=== PATIENT | male | born 1990 | race Caucasian/White ===

== ENCOUNTER 2019-02-04 17:46 | Inpatient (IN) | payer SELFPAY ==
[~2019-02-04] VITALS: Ht 157.5 cm; Wt 85.0 kg
--- NOTE | 2019-02-04 18:29 | ERD ---
ER Documentation Chief Complaint Chief Complaint LLQ PAIN WITH DISTENDED ABDOMEN SINCE LAST NIGHT HPI The patient is a 28-year-old male, presenting to the ER because of left lower quadrant abdominal pain for 1 day with dysuria and fever. He denies neck pain, chest pain, dysuria, diarrhea, constipation. He denies similar symptoms previously. He smokes and drinks, denies illicit drug, therer is no aggravating or relieving factor Medical/surgical history: None ROS All systems reviewed and are negative except as per history of present illness. Allergies Allergies: Coded Allergies: No Known Allergy (Unverified , 02/04/19) Physical Exam Vitals Vital Signs Date Temp Pulse Resp B/P (MAP) Pulse Ox O2 O2 Flow FiO2 Time Delivery Rate 02/04/19 92 18 122/73 99 Room Air 19:47 (89) 02/04/19 100.0 91 18 112/69 98 18:17 (83) Physical Exam Const: No acute distress. Head: Atraumatic. Eyes: Normal Conjunctiva. ENT: Normal External Ears, Nose and Mouth. Neck: Full range of motion. No meningismus. Resp: Clear to auscultation bilaterally. Cardio: Regular rate and rhythm. Abd: Soft, non distended, normal bowel sounds, diffuse and moderate abdominal tenderness, more tenderness at the left lower quadrant. Skin: No petechiae or rashes. Back: No midline or flank tenderness. Ext: No cyanosis, or edema. Neur: Awake and alert. No focal deficit Psych: Normal Mood and Affect. Result Diagram: 02/04/19 1834 02/04/19 1834 Results 24 hrs Laboratory Tests Test 02/04/19 18:34 02/04/19 18:35 White Blood Count 15.6 10^3/ul Red Blood Count 4.79 10^6/ul Hemoglobin 15.6 g/dl Hematocrit 46.2 % Mean Corpuscular Volume 96.5 fl Mean Corpuscular Hemoglobin 32.6 pg Mean Corpuscular Hemoglobin Concent 33.8 g/dl Red Cell Distribution Width 12.9 % Platelet Count 360 10^3/UL Mean Platelet Volume 9.5 fl Immature Granulocytes % 0.400 % Neutrophils % 81.5 % Lymphocytes % 10.0 % Monocytes % 7.8 % Eosinophils % 0.0 % Basophils % 0.3 % Nucleated Red Blood Cells % 0.0 /100WBC Immature Granulocytes # 0.060 10^3/ul Neutrophils # 12.7 10^3/ul Lymphocytes # 1.6 10^3/ul Monocytes # 1.2 10^3/ul Eosinophils # 0.0 10^3/ul Basophils # 0.0 10^3/ul Nucleated Red Blood Cells # 0.0 10^3/ul Sodium Level 140 mmol/L Potassium Level 3.7 mmol/L Chloride Level 102 mmol/L Carbon Dioxide Level 28 mmol/L Anion Gap 10 Blood Urea Nitrogen 13 mg/dl Creatinine 1.05 mg/dl Est Glomerular Filtrat Rate mL/min > 60 mL/min Glucose Level 93 mg/dl Calcium Level 9.9 mg/dl Total Bilirubin 1.2 mg/dl Direct Bilirubin 0.00 mg/dl Indirect Bilirubin 1.2 mg/dl Aspartate Amino Transf (AST/SGOT) 29 IU/L Alanine Aminotransferase (ALT/SGPT) 51 IU/L Alkaline Phosphatase 87 IU/L Total Protein 8.4 g/dl Albumin 4.7 g/dl Globulin 3.70 g/dl Albumin/Globulin Ratio 1.27 Lipase 91 U/L Bedside Urine pH (LAB) 7.0 Bedside Urine Protein (LAB) 1+ Bedside Urine Glucose (UA) Negative Bedside Urine Ketones (LAB) 1+ Bedside Urine Blood Negative Bedside Urine Nitrite (LAB) Negative Bedside Urine Leukocyte Esterase (L Negative Current Medications Medications Dose Sig/Gareth Start Time Status Last (Trade) Ordered Route PRN Stop Time Admin Dose Reason Admin Sodium 1,000 ml @ Q1H ONCE 02/04/19 DC 02/04/19 Chloride 1,000 mls/hr IV 19:00 18:40 02/04/19 19:59 Morphine 2 mg ONCE STAT 02/04/19 DC 02/04/19 Sulfate IV 18:32 18:40 (morphine) 02/04/19 18:35 Ondansetron 4 mg ONCE STAT 02/04/19 DC 02/04/19 HCl (Zofran IV 18:32 18:40 Inj) 02/04/19 18:35 Ketorolac 30 mg ONCE STAT 02/04/19 DC 02/04/19 Tromethamine IV 18:32 18:39 (Toradol) 02/04/19 18:35 Sodium 1,000 ml @ Q1H ONCE 02/04/19 DC 02/04/19 Chloride 1,000 mls/hr IV 20:00 20:00 5/21/19 20:59 150 ml @ ONCE ONCE 02/04/19 DC 02/04/19 Levofloxacin/ 100 mls/hr IVPB 20:00 20:48 Dextrose 02/04/19 21:29 100 ml @ ONCE ONCE 02/04/19 DC 02/04/19 Metronidazole 100 mls/hr IVPB 20:00 20:00 02/04/19 20:59 Procedures/MDM [place] [address] Radiology Main Line: [phone] DIAGNOSTIC IMAGING REPORT Patient: SHONDA SHIRLEY : 1990 Age: 28 Sex: M MR #: [id number] DOS: 02/04/19 1832 Ordering MD: FIORELLA RUVALCABA MD Location: E/R Room/Bed: PROCEDURE: CT abdomen and pelvis without contrast. CLINICAL INDICATION: Abdominal Pain TECHNIQUE: CT scan of the abdomen and pelvis without oral contrast was performed and is reconstructed at 2.5 mm contiguous axial intervals from the dome of the diaphragm to the inferior pubic rami.. The patient was scanned without intravenous contrast. Sagittal and coronal reformatted images were obtained from the axial source images. The calculated radiation dose measures 594 mGy centimeters. The CTDI measures 9.5 mGy. Individualized dose optimization technique was used for the performance of this exam. This included 1. Automated exposure control. 2. Adjustment of the mA and / or kV according to the patient's size. 3. Use of iterative reconstructed technique. DICOM images are available. COMPARISON: None. FINDINGS: The lung bases are clear of any infiltrate or nodule. No effusion is seen. The liver is of normal size and contour with no mass or ductal dilatation. There is fatty infiltration of the liver. No gallstones are visualized. No splenic, adrenal or pancreatic abnormalities present. Kidneys are of normal size and contour. No hydronephrosis, calculus or mass Is seen. Ureters are of normal course and caliber with no stone. No bladder mass or stone is present. Prostate and seminal vesicles appear normal. There is no aneurysm. No adenopathy is present. No bowel mass or obstruction is present. The appendix is normal. Noted is diverticulosis. There is stranding of the pericolic fat posterior lateral to the junction of the descending colon and proximal sigmoid in the superior left bev pelvis. No discrete collection is seen and no ascites or pneumoperitoneum is visualized. The osseous structures are intact. IMPRESSION: Diverticulitis superior lateral left pelvis without evidence of perforation or abscess. Fatty liver. .Jair Moreno MD, MD Date Time Electronically viewed and signed by .Jair Moreno MD, on 02/04/2019 19:25 .A/ CC: FIORELLA RUVALCABA MD [id number] MEDICAL MAKING DECISION: The patient is a 28-year-old male, presenting with acute diverticulitis. He was treated with 2 L normal saline for dehydration, morphine 2 mg IV, Toradol 30 mg IV for pain and Zofran 4 mg IV for nausea, Levaquin IV and Flagyl IV for acute diverticulitis The differential diagnoses considered include but are not limited to cholelithiasis, cholecystitis, choledocholithiasis, cholangitis, pancreatitis, hepatitis, gastritis, peptic ulcer disease, gastric ulcer, appendicitis, cystitis, diverticulitis, partial small bowel obstruction. Departure Diagnosis: Primary Impression: Diverticulitis Condition: Stable Comments I discussed the findings with the patient. I discussed the patient with Dr Rodgers at , who was made aware of the lab, the treatment, the patient condition. The patient is admitted to [facility] Disclaimer: Inadvertent spelling and grammatical errors are likely due to EHR/dictation software use and do not reflect on the overall quality of patient care. Also, please note that the electronic time recorded on this note does not necessarily reflect the actual time of the patient encounter. FIORELLA RUVALCABA MD February 04, 2019 18:29
[2019-02-04] MEDS ORDERED: ONDANSETRON 4 MG INJ IV STA (18:32)
[2019-02-04] MEDS ORDERED: morphine 2 MG INJ IV STA (18:32)
[2019-02-04] MEDS ORDERED: KETOROLAC 30 MG INJ IV STA (18:32)
[2019-02-04] MEDS ORDERED: SOD CHLORIDE 0.9% 1,000 ML IV ONE ×2 (19:00→20:00)
[2019-02-04] MEDS ORDERED: LEVOFLOXACIN 750MG/D5W (PMX) 150 ML IVPB ONE (20:00)
[2019-02-04] MEDS ORDERED: metroNIDAZOLE 500 MG/NS (PMX) 100 ML IVPB ONE (20:00)
[2019-02-04 22:12] VITALS: BP 123/70; PULSE 98; RESP 18
[2019-02-04] MEDS ORDERED: ONDANSETRON 4 MG INJ IV PRN (22:30)
[2019-02-04] MEDS ORDERED: NACL 0.9% 3 ML SYG IV SCH (22:30)
[2019-02-04 22:34] VITALS: Ht 157.5 cm; Wt 85.0 kg
[2019-02-04] MEDS: DEXTROSE 5%-0.45% NACL 1,000 ML IV SCH (23:07)
--- NOTE | 2019-02-04 23:59 | HP ---
Date/Time of Note Date/Time of Note DATE: 02/04/19 TIME: 23:59 Assessment/Plan VTE Prophylaxis Pharmacological prophylaxis: other Lines/Catheters IV Catheter Type (from Nrsg): Peripheral IV Urinary Cath still in place: No Assessment/Plan Assessment/Plan 1. Diverticulitis -keep n.p.o. for now with IV fluid -IV antibiotic -Stool studies -Pain management 2. SIRS, as evidenced by leukocytosis and tachycardia: Likely secondary to above -Check UA and urine culture Result Diagram: 02/04/19 1834 02/04/19 1834 Results 24hrs Laboratory Tests Test 02/04/19 18:34 02/04/19 18:35 White Blood Count 15.6 H Red Blood Count 4.79 Hemoglobin 15.6 Hematocrit 46.2 Mean Corpuscular Volume 96.5 Mean Corpuscular Hemoglobin 32.6 Mean Corpuscular Hemoglobin Concent 33.8 Red Cell Distribution Width 12.9 Platelet Count 360 Mean Platelet Volume 9.5 Immature Granulocytes % 0.400 Neutrophils % 81.5 H Lymphocytes % 10.0 L Monocytes % 7.8 Eosinophils % 0.0 Basophils % 0.3 Nucleated Red Blood Cells % 0.0 Immature Granulocytes # 0.060 H Neutrophils # 12.7 H Lymphocytes # 1.6 Monocytes # 1.2 H Eosinophils # 0.0 Basophils # 0.0 Nucleated Red Blood Cells # 0.0 Sodium Level 140 Potassium Level 3.7 Chloride Level 102 Carbon Dioxide Level 28 Anion Gap 10 Blood Urea Nitrogen 13 Creatinine 1.05 Est Glomerular Filtrat Rate mL/min > 60 Glucose Level 93 Calcium Level 9.9 Total Bilirubin 1.2 Direct Bilirubin 0.00 Indirect Bilirubin 1.2 H Aspartate Amino Transf (AST/SGOT) 29 Alanine Aminotransferase (ALT/SGPT) 51 Alkaline Phosphatase 87 Total Protein 8.4 H Albumin 4.7 Globulin 3.70 H Albumin/Globulin Ratio 1.27 Lipase 91 Bedside Urine pH (LAB) 7.0 Bedside Urine Protein (LAB) 1+ H Bedside Urine Glucose (UA) Negative Bedside Urine Ketones (LAB) 1+ H Bedside Urine Blood Negative Bedside Urine Nitrite (LAB) Negative Bedside Urine Leukocyte Esterase (L Negative HPI/ROS Admit Date/Time Admit Date/Time February 04, 2019 at 20:00 Hx of Present Illness Patient is a 28-year-old male with a history of hernia repair who presented to the ER complaining of left lower quadrant pain and abdominal distention. Pain is been progressively getting worse for the past few days. Denies venessa sea/vomiting or diarrhea. When presented to ER, he had a temp of 100, otherwise vitals were stable. WBC almost 16,000. CT abdomen pelvis shows diverticulitis superior lateral left pelvis without evidence of perforation or abscess. PMH/Family/Social Past Medical History Past Medical History Medical History: other (See HPI) Past Surgical History Past Surgical Hx: other (See HPI) Family History Significant Family History: no pertinent family hx Social History Alcohol Use: none Smoking Status: Never smoker Drug Use: none Exam Constitutional: alert, oriented, well developed Head: normocephalic, atraumatic Eyes: EOMI, PERRL Respiratory: clear to auscultation, normal air movement Cardiovascular: regular rate and rhythm, nl pulses Gastrointestinal: soft, non-tender Extremities: normal pulses Medications Current Medications Dextrose/Sodium Chloride 1,000 ml @ 125 mls/hr Q8H IV Last administered on 02/04/19at 23:07; Admin Dose 125 MLS/HR; Start 02/04/19 at 22:20 IV Flush (NS 3 ml) 3 ml PER PROTOCOL IV ; Start 02/04/19 at 22:30 Ondansetron HCl (Zofran Inj) 4 mg Q6H PRN IV NAUSEA/VOMITING; Start 02/04/19 at 22:30 Ketorolac Tromethamine (Toradol) 30 mg Q6H PRN IV PAIN LEVEL 1-3; Start at 22:30; Stop 02/07/19 at 22:29 Coded Allergies: No Known Allergy (Unverified , 02/04/19) Social History Smoking Status: Current every day smoker Exam/Review of Systems Vital Signs Vitals Vital Signs Date Temp Pulse Resp B/P (MAP) Pulse Ox O2 O2 Flow FiO2 Time Delivery Rate 02/04/19 98.8 98 18 123/70 97 22:12 (87) 02/04/19 Room Air 21:28 TEERNCE KILLIAN MD February 04, 2019 23:59
[2019-02-05 01:53] VITALS: BP 122/68; PULSE 100; RESP 18
[2019-02-05] MEDS: DEXTROSE 5%-0.45% NACL 1,000 ML IV SCH ×3 (06:20→23:32)
[2019-02-05 07:57] VITALS: BP 119/68; PULSE 88; RESP 18
[2019-02-05] MEDS: KETOROLAC 30 MG INJ IV PRN ×3 (10:34→23:31)
[2019-02-05 14:04] VITALS: BP 108/80; PULSE 67; RESP 15
--- NOTE | 2019-02-05 14:19 | PN ---
Date/Time of Note Date/Time of Note DATE: 02/05/19 TIME: 14:17 Assessment/Plan VTE Prophylaxis Risk score (from Ns)>0 risk: 2 SCD applied (from [facility] [place] No SCD contraindicated: other Pharmacological prophylaxis: NA/contraindicated Pharm contraindication: low risk/ambulating Lines/Catheters IV [facility] Type (from [facility]): Peripheral IV Urinary Cath still in place: No Assessment/Plan Hospital Course SUBJECTIVE: Lying in bed, with improved abdominal pain. Had low-grade fevers this morning. OBJECTIVE: Vital signs-see below PHYSICAL EXAM: Constitutional: Adequately built,not in acute distress. HEENT: Head atraumatic and normocephalic. Eyes: Extraocular muscles intact. Anicteric sclerae. Pupils equal bilaterally, reactive to light. NECK: Supple without lymph node. CHEST: Clear and good breath sounds equally. No wheezing. No rhonchi. HEART: S1, S2. Regular rate and rhythm. ABDOMEN: Tender left upper/lower quadrants , no rebound tenderness. Bowel sounds were present. EXTREMITIES: No cyanosis, clubbing or edema. NEUROLOGIC: Alert and oriented x3. No focal deficit. No sensory deficit. PSYCHOSOCIAL: No signs of depression. INTEGUMENTARY: No open wounds. ASSESSMENT AND PLAN:28 yo M w/ history of hernia repair in 1992, tobacco use/ alcohol use , admitted with sudden onset of left-sided abdominal pain, found to have acute diverticulitis without perforation. Acute colonic diverticulitis without perforation/abscess -Start IV Zosyn -Bowel rest, IV fluids, PRN IV pain meds -Blood cultures SIRS with diverticulitis. - Continue antimicrobials -Follow cultures Tobacco use/alcohol use -Cessation advised DVT prophylaxis: SCDs PUD prophylaxis: Pepcid Disposition: Continue current management. Await for blood cultures. Continue antimicrobials and await for clinical improvement. Patient was seen in collaboration with Dr. Schmitz. Result Diagram: 02/05/1952802/05/19528 Results 24hrs Laboratory Tests Test 02/04/19 18:34 02/04/19 18:35 02/05/19 05:29 White Blood Count 15.6 H 11.9 #H Red Blood Count 4.79 4.14 L Hemoglobin 15.6 13.5 L Hematocrit 46.2 39.8 L Mean Corpuscular Volume 96.5 96.1 Mean Corpuscular Hemoglobin 32.6 32.6 Mean Corpuscular Hemoglobin Concent 33.8 33.9 Red Cell Distribution Width 12.9 12.9 Platelet Count 360 311 Mean Platelet Volume 9.5 9.7 Immature Granulocytes % 0.400 0.300 Neutrophils % 81.5 H 69.2 Lymphocytes % 10.0 L 20.8 Monocytes % 7.8 9.3 Eosinophils % 0.0 0.1 Basophils % 0.3 0.3 Nucleated Red Blood Cells % 0.0 0.0 Immature Granulocytes # 0.060 H 0.040 H Neutrophils # 12.7 H 8.2 H Lymphocytes # 1.6 2.5 Monocytes # 1.2 H 1.1 H Eosinophils # 0.0 0.0 Basophils # 0.0 0.0 Nucleated Red Blood Cells # 0.0 0.0 Sodium Level 140 137 Potassium Level 3.7 3.6 Chloride Level 102 106 Carbon Dioxide Level 28 27 Anion Gap 10 4 L Blood Urea Nitrogen 13 11 Creatinine 1.05 1.00 Est Glomerular Filtrat Rate mL/min > 60 > 60 Glucose Level 93 100 Calcium Level 9.9 8.7 Total Bilirubin 1.2 1.3 Direct Bilirubin 0.00 0.00 Indirect Bilirubin 1.2 H 1.3 H Aspartate Amino Transf (AST/SGOT) 29 22 Alanine Aminotransferase (ALT/SGPT) 51 38 Alkaline Phosphatase 87 59 Total Protein 8.4 H 6.5 # Albumin 4.7 3.5 # Globulin 3.70 H 3.00 Albumin/Globulin Ratio 1.27 1.16 Lipase 91 Bedside Urine pH (LAB) 7.0 Bedside Urine Protein (LAB) 1+ H Bedside Urine Glucose (UA) Negative Bedside Urine Ketones (LAB) 1+ H Bedside Urine Blood Negative Bedside Urine Nitrite (LAB) Negative Bedside Urine Leukocyte Esterase (L Negative Phosphorus Level 2.4 L Magnesium Level 1.8 Exam/Review of Systems Exam Vitals Vital Signs Date Temp Pulse Resp B/P (MAP) Pulse Ox O2 O2 Flow FiO2 Time Delivery Rate 02/05/19 100.2 88 18 119/68 97 Room Air 07:57 (85) Intake and Output 02/04/19 02/04/19 02/05/19 1515:00 23:00 07:00 IntakeIntake Total 2250 ml 750 ml BalanceBalance 2250 ml 750 ml Results Results 24hrs Laboratory Tests Test 02/04/19 18:34 02/04/19 18:35 02/05/19 05:29 White Blood Count 15.6 H 11.9 #H Red Blood Count 4.79 4.14 L Hemoglobin 15.6 13.5 L Hematocrit 46.2 39.8 L Mean Corpuscular Volume 96.5 96.1 Mean Corpuscular Hemoglobin 32.6 32.6 Mean Corpuscular Hemoglobin Concent 33.8 33.9 Red Cell Distribution Width 12.9 12.9 Platelet Count 360 311 Mean Platelet Volume 9.5 9.7 Immature Granulocytes % 0.400 0.300 Neutrophils % 81.5 H 69.2 Lymphocytes % 10.0 L 20.8 Monocytes % 7.8 9.3 Eosinophils % 0.0 0.1 Basophils % 0.3 0.3 Nucleated Red Blood Cells % 0.0 0.0 Immature Granulocytes # 0.060 H 0.040 H Neutrophils # 12.7 H 8.2 H Lymphocytes # 1.6 2.5 Monocytes # 1.2 H 1.1 H Eosinophils # 0.0 0.0 Basophils # 0.0 0.0 Nucleated Red Blood Cells # 0.0 0.0 Sodium Level 140 137 Potassium Level 3.7 3.6 Chloride Level 102 106 Carbon Dioxide Level 28 27 Anion Gap 10 4 L Blood Urea Nitrogen 13 11 Creatinine 1.05 1.00 Est Glomerular Filtrat Rate mL/min > 60 > 60 Glucose Level 93 100 Calcium Level 9.9 8.7 Total Bilirubin 1.2 1.3 Direct Bilirubin 0.00 0.00 Indirect Bilirubin 1.2 H 1.3 H Aspartate Amino Transf (AST/SGOT) 29 22 Alanine Aminotransferase (ALT/SGPT) 51 38 Alkaline Phosphatase 87 59 Total Protein 8.4 H 6.5 # Albumin 4.7 3.5 # Globulin 3.70 H 3.00 Albumin/Globulin Ratio 1.27 1.16 Lipase 91 Bedside Urine pH (LAB) 7.0 Bedside Urine Protein (LAB) 1+ H Bedside Urine Glucose (UA) Negative Bedside Urine Ketones (LAB) 1+ H Bedside Urine Blood Negative Bedside Urine Nitrite (LAB) Negative Bedside Urine Leukocyte Esterase (L Negative Phosphorus Level 2.4 L Magnesium Level 1.8 Medications Medication Current Medications Dextrose/Sodium Chloride 1,000 ml @ 125 mls/hr Q8H IV Last administered on 02/05/19at 06:20; Admin Dose 125 MLS/HR; Start 02/04/19 at 22:20 IV Flush (NS 3 ml) 3 ml PER PROTOCOL IV ; Start 02/04/19 at 22:30 Ondansetron HCl (Zofran Inj) 4 mg Q6H PRN IV NAUSEA/VOMITING; Start 02/04/19 at 22:30 Ketorolac Tromethamine (Toradol) 30 mg Q6H PRN IV PAIN LEVEL 1-3 Last administered on 02/05/19at 10:34; Admin Dose 30 MG; Start 02/04/19 at 22:30; Stop 02/07/19 at 22:29 JACKY PAK NP February 05, 2019 14:19
[2019-02-05] MEDS: FAMOTIDINE 20 MG INJ IV SCH ×2 (14:29→23:31)
[2019-02-05] MEDS: PIPER-TAZO 3.375 GM IV (PMX) 100 ML IVPB SCH ×2 (14:46→18:13)
[2019-02-05 20:00] VITALS: BP 142/76; PULSE 75; RESP 18
[2019-02-06] MEDS: PIPER-TAZO 3.375 GM IV (PMX) 100 ML IVPB SCH ×4 (00:06→18:04)
[2019-02-06 02:00] VITALS: BP 132/82; PULSE 75; RESP 19
[2019-02-06] MEDS: DEXTROSE 5%-0.45% NACL 1,000 ML IV SCH ×3 (05:59→18:04)
[2019-02-06] MEDS: FAMOTIDINE 20 MG INJ IV SCH (08:01)
[2019-02-06 08:09] VITALS: BP 135/77; PULSE 15; PULSE 61; RESP 15
--- NOTE | 2019-02-06 13:47 | PN ---
Date/Time of Note Date/Time of Note DATE: 02/06/19 TIME: 13:44 Assessment/Plan VTE Prophylaxis Risk score (from Ns)>0 risk: 1 SCD applied (from Ns): No SCD contraindicated: other Pharmacological prophylaxis: NA/contraindicated Pharm contraindication: low risk/ambulating Lines/Catheters [facility] Peripheral IV Urinary Cath still in place: No Assessment/Plan Hospital Course SUBJECTIVE: no further pain, no fevers OBJECTIVE: Vital signs-see below PHYSICAL EXAM: Constitutional: Adequately built,not in acute distress. HEENT: Head atraumatic and normocephalic. Eyes: Extraocular muscles intact. Anicteric sclerae. Pupils equal bilaterally, reactive to light. NECK: Supple without lymph node. CHEST: Clear and good breath sounds equally. No wheezing. No rhonchi. HEART: S1, S2. Regular rate and rhythm. ABDOMEN: Tender left upper/lower quadrants , no rebound tenderness. Bowel sounds were present. EXTREMITIES: No cyanosis, clubbing or edema. NEUROLOGIC: Alert and oriented x3. No focal deficit. No sensory deficit. PSYCHOSOCIAL: No signs of depression. INTEGUMENTARY: No open wounds. ASSESSMENT AND PLAN:28 yo M w/ history of hernia repair in 1992, tobacco use/ alcohol use , admitted with sudden onset of left-sided abdominal pain, found to have acute diverticulitis without perforation. Acute colonic diverticulitis without perforation/abscess -no further pain, no fevers.Leukocytosis resolved -start clear diet -cont abx SIRS with diverticulitis. - resolved - f/u cultures Tobacco use/alcohol use -Cessation advised DVT prophylaxis: SCDs PUD prophylaxis: Pepcid Disposition: Continue current management. start diet and if no further pain, DC planning tomorrow. Patient was seen in collaboration with Dr. Schmitz. Result Diagram: 02/06/19 0651 02/06/19 0651 Results 24hrs Laboratory Tests Test 02/06/19 06:51 White Blood Count 8.2 # Red Blood Count 4.31 L Hemoglobin 14.0 Hematocrit 41.0 L Mean Corpuscular Volume 95.1 Mean Corpuscular Hemoglobin 32.5 Mean Corpuscular Hemoglobin Concent 34.1 Red Cell Distribution Width 12.6 Platelet Count 320 Mean Platelet Volume 9.7 Immature Granulocytes % 0.400 Neutrophils % 59.0 Lymphocytes % 26.2 Monocytes % 12.9 H Eosinophils % 1.1 Basophils % 0.4 Nucleated Red Blood Cells % 0.0 Immature Granulocytes # 0.030 Neutrophils # 4.8 Lymphocytes # 2.1 Monocytes # 1.1 H Eosinophils # 0.1 Basophils # 0.0 Nucleated Red Blood Cells # 0.0 Sodium Level 140 Potassium Level 3.7 Chloride Level 107 Carbon Dioxide Level 27 Anion Gap 6 Blood Urea Nitrogen 4 L Creatinine 0.94 Est Glomerular Filtrat Rate mL/min > 60 Glucose Level 95 Hemoglobin A1c 4.8 Calcium Level 8.9 Triglycerides Level 90 Cholesterol Level 120 LDL Cholesterol, Calculated 60 HDL Cholesterol 42 Cholesterol/HDL Ratio 2.8 Exam/Review of Systems Exam Vitals Vital Signs Date Temp Pulse Resp B/P (MAP) Pulse Ox O2 O2 Flow FiO2 Time Delivery Rate 02/06/19 98.2 61 15 135/77 97 Room Air 08:09 (96) Intake and Output 02/05/19 02/05/19 02/06/19 1515:00 23:00 07:00 IntakeIntake Total 1200 ml 950 ml BalanceBalance 1200 ml 950 ml Results Results 24hrs Laboratory Tests Test 02/06/19 06:51 White Blood Count 8.2 # Red Blood Count 4.31 L Hemoglobin 14.0 Hematocrit 41.0 L Mean Corpuscular Volume 95.1 Mean Corpuscular Hemoglobin 32.5 Mean Corpuscular Hemoglobin Concent 34.1 Red Cell Distribution Width 12.6 Platelet Count 320 Mean Platelet Volume 9.7 Immature Granulocytes % 0.400 Neutrophils % 59.0 Lymphocytes % 26.2 Monocytes % 12.9 H Eosinophils % 1.1 Basophils % 0.4 Nucleated Red Blood Cells % 0.0 Immature Granulocytes # 0.030 Neutrophils # 4.8 Lymphocytes # 2.1 Monocytes # 1.1 H Eosinophils # 0.1 Basophils # 0.0 Nucleated Red Blood Cells # 0.0 Sodium Level 140 Potassium Level 3.7 Chloride Level 107 Carbon Dioxide Level 27 Anion Gap 6 Blood Urea Nitrogen 4 L Creatinine 0.94 Est Glomerular Filtrat Rate mL/min > 60 Glucose Level 95 Hemoglobin A1c 4.8 Calcium Level 8.9 Triglycerides Level 90 Cholesterol Level 120 LDL Cholesterol, Calculated 60 HDL Cholesterol 42 Cholesterol/HDL Ratio 2.8 Medications Medication Current Medications Dextrose/Sodium Chloride 1,000 ml @ 125 mls/hr Q8H IV Last administered on 02/06/19at 08:03; Admin Dose 125 MLS/HR; Start 02/04/19 at 22:20 IV Flush (NS 3 ml) 3 ml PER PROTOCOL IV ; Start 02/04/19 at 22:30 Ondansetron HCl (Zofran Inj) 4 mg Q6H PRN IV NAUSEA/VOMITING; Start 02/04/19 at 22:30 Ketorolac Tromethamine (Toradol) 30 mg Q6H PRN IV PAIN LEVEL 1-3 Last administered on 02/05/19 23:31; Admin Dose 30 MG; Start 02/04/19 at 22:30; Stop 02/07/19 at 22:29 Piperacillin Sod/ Tazobactam Sod 100 ml @ 200 mls/hr Q6 IVPB Last administered on 02/06/19at 12:55; Admin Dose 200 MLS/HR; Start 02/05/19 at 14:30 Famotidine (Pepcid Iv) 20 mg BID IV Last administered on 02/06/19 08:01; Admin Dose 20 MG; Start 02/05/19 at 14:30 JACKY PAK NP February 06, 2019 13:47
[2019-02-06] MEDS ORDERED: ACETAMINOPHEN 325 MG TAB PO PRN (14:00)
[2019-02-06 14:36] VITALS: BP 128/78; PULSE 85; RESP 18
[2019-02-06] MEDS: KETOROLAC 30 MG INJ IV PRN ×2 (14:48→22:32)
[2019-02-06 19:51] VITALS: BP 131/79; PULSE 78; RESP 18
[2019-02-07] MEDS: PIPER-TAZO 3.375 GM IV (PMX) 100 ML IVPB SCH ×3 (00:26→12:09)
[2019-02-07 01:38] VITALS: BP 130/67; PULSE 72; RESP 18
[2019-02-07] MEDS: DEXTROSE 5%-0.45% NACL 1,000 ML IV SCH ×2 (03:24→12:09)
[2019-02-07 07:34] VITALS: BP 124/82; PULSE 58; RESP 18
--- NOTE | 2019-02-07 12:56 | PDOCDIS ---
Discharge Instructions CONDITION [id number] Patient Condition: [id number] Stable HOME CARE INSTRUCTIONS: [id number] Diet Instructions: [id number] Regular FOLLOW UP/APPOINTMENTS Follow-up Plan Follow up With primary care physician in 1 week JACKY PAK NP February 07, 2019 12:56
[2019-02-07] MEDS ORDERED: CIPR500T4 PO (12:58)
[2019-02-07] MEDS ORDERED: work note (12:58)
[2019-02-07] MEDS ORDERED: METR500T PO (12:58)
--- NOTE | 2019-02-07 13:01 | DS ---
Date/Time of Note Date/Time of Note DATE: 02/07/19 TIME: 13:00 Discharge Summary Admission/Discharge Info Admit Date/Time February 04, 2019 at 20:00 Discharge Date/Time Discharge Diagnosis Acute colonic diverticulitis without perforation/abscess. Stable Tobacco use/alcohol use Patient Condition: Stable Procedures 02 04 2019: CT abdomen and pelvis IMPRESSION: Diverticulitis superior lateral left pelvis without evidence of perforation or abscess. Hospital Course 28 yo M w/ history of hernia repair in 1992, tobacco use/ alcohol use , admitted with sudden onset of left-sided abdominal pain, found to have acute diverticulitis without perforation. Patient was treated with bowel rest, IV fluids and IV antimicrobials with pain medications. Patient symptoms improved. SIRS resolved. He was then started on a clear diet and was advanced which he was able to tolerate. Patient's blood cultures were negative. At this time, patient is feeling back to his baseline. He is eager to be discharged home. Patient was given 5 more days on Cipro and Flagyl for course completion. Approximately 60-minute was spent on coordinating the discharge on this patient. Patient was seen in collaboration with Dr. Schmitz. [facility] [employer] [work note] No Conflict Check Please excuse MR.Jaime Hunter attending work from 02/04/2019 to 02/08/2019 due to his illness. Prov:JACKY PAK NP 02/07/19 Metronidazole* (Flagyl*) 500 Mg Tablet, 500 MG PO Q8 for 5 Days, #15 TAB Prov:JACKY PAK NP 02/07/19 Ciprofloxacin Hcl* (Ciprofloxacin Hcl*) 500 Mg Tablet, 500 MG PO BID, #10 TAB Prov:JACKY PAK NP 02/07/19 Follow-up Plan Follow up With primary care physician in 1 week Primary Care Provider Care Physician No Primary JACKY PAK NP February 07, 2019 13:01
[2019-02-07 14:00] VITALS: BP 139/78; PULSE 82; RESP 18
== END 2019-02-07 16:22 | disposition home or self-care (01) | DRG 392 ==
LOC: E/R 17:46 → 5EC 20:00
PROVIDERS: ADMIT Internal Medicine; ATTEND Internal Medicine
DX: K57.32 Diverticulitis of large intestine without perforation or abscess without bleeding (principal); R65.10 Systemic inflammatory response syndrome (SIRS) of non-infectious origin without acute organ dysfunction; Z72.0 Tobacco use; Z72.89 Other problems related to lifestyle
CPT/HCPCS: 36415; 74176; 80048; 80053; 80061; 81003; 83036; 83690; 83735; 84100; 85025; 96361; 96374; 96375; J1885; J1956; J2270; J2405; J2543; J7030; J7042